=== PATIENT | female | born 1995 | race Caucasian/White ===

== ENCOUNTER 2024-11-25 20:32 | Emergency (ER) | payer BC, SELFPAY ==
[2024-11-25 20:33] VITALS: BP 131/98
[2024-11-25 20:55] LABS: Hematocrit 39.3 % (37.0-47.0); Hemoglobin 13.2 g/dL (12.0-16.0); Mean Corp Hgb Conc. 33.6 g/dL (33.0-37.0); Mean Corpuscular Volume 85.6 fL (81.0-99.0); Nucleated Red Blood Cells % 0 %; Platelet Count 237 10^3/uL (130-400); Red Cell Dist. Width 13.0 % (11.5-14.5)
[2024-11-25] MEDS: ZOFRAN 4 MG IV ×2 (21:15→23:45)
[2024-11-25 21:18] LABS: HCG, Serum Qualitative Screen Negative
[2024-11-25 21:34] LABS: ALT (SGPT) 43 U/L (0-35); AST (SGOT) 35 U/L (14-36); Albumin 4.5 g/dl (3.5-5.0); Alkaline Phosphatase 59 U/L (38-126); Blood Urea Nitrogen 10 mg/dl (7-17); Calcium 9.4 mg/dl (8.4-10.2); Carbon Dioxide 23 mmol/L (22-30); Chloride 104 mmol/L (98-107); Glucose 119 mg/dl (70-99); Potassium 4.0 mmol/L (3.5-5.1); Sodium 138 mmol/L (135-145); Total Protein 7.0 g/dl (6.3-8.2); eGFR > 60.00
[2024-11-25 21:56] LABS: Lipase 77 U/L (23-300)
[2024-11-25 22:21] VITALS: BP 121/105
[2024-11-25 22:42] VITALS: BMI 17.7
[2024-11-25 23:00] VITALS: BP 136/80
[2024-11-25] MEDS: NSS 1000 IV (23:12)
[2024-11-25] MEDS: PROTONIX IV 40 MG IV (23:12)
[2024-11-25 23:15] VITALS: BP 122/87
[2024-11-25 23:31] LABS: Magnesium 1.8 mg/dl (1.6-2.3)
[2024-11-26] VITALS: BP 107/81
[2024-11-26] MEDS: TORADOL 15 MG IV (00:57)
[2024-11-26] MEDS: COMPAZINE 10 MG IV (00:57)
[2024-11-26] MEDS: NSS 1000 IV (00:58)
[2024-11-26] MEDS: MORPHINE SULFATE 2 MG IV (00:58)
[2024-11-26 01:10] VITALS: BP 107/95
--- NOTE | 2024-11-26 02:06 | ED.GENMED ---
History of Present Illness
General
Chief Complaint: Abdominal Symptoms
Source: patient
Exam Limitations: none
Time Seen by Provider: 11/25/24 22:34
Nursing documentation reviewed up to this point in time: agreed with
History of Present Illness
History of Present Illness:
Patient presents to ED secondary to persistent nausea, vomiting, and diarrhea over the past 2 days. Denies fever or chills. Denies trauma. Denies sick contact. Denies recent travel. Denies recent change in medications or diet. Denies dizziness
or weakness. Denies noting blood with vomitus nor diarrhea.
Review of Systems
Review of Systems
Allergies reviewed?: Yes
All Other Systems: ROS reviewed and negative except as documented in HPI and ROS
Constitutional: Reports no symptoms; Denies fever
Respiratory: Reports no symptoms
Cardiac: Reports no symptoms
ABD/GI: Reports abdominal pain, nausea, vomiting and diarrhea; Denies bloody stools or black stools
Musculoskeletal: Reports no symptoms
Skin: Reports no symptoms
Neurological: Reports no symptoms; Denies dizzy or weakness
Phy Exam
Physical Exam
Physical Exam:
Physical Exam
General: mild distress, not acutely ill. afebrile
Head: nc/at. eomi
Neck: supple. no meningeal signs.
Heart: s1/s2 regular rate and rhythm
Lungs: no acute respiratory distress. clear bilaterally
Abdomen: normal bowel sounds. not tender. no distention
Neuro: alert and oriented x 3. no focal neurological deficits
Skin: no rash
Psychiatric: well kept. interactive and cooperative
Extremities: no edema. no calf tenderness.
Course
Orders/Labs/Results
Orders:
Orders
11/25/24 20:38
Electrocardiogram (*1) Urgent
Reason for Study: Abdominal Pain
EKG- Treatment ONCE
11/25/24 20:39
Test Result ONCE
11/25/24 20:50
Complete Blood Count/With Diff Urgent
Comprehensive Metabolic Panel Urgent
HCG, Serum Qualitative Screen Urgent
Lipase Urgent
Magnesium Urgent
Comment: ADD ON
11/25/24 21:12
Ondansetron Injectable [Zofran] 4 mg .ROUTE .STK-MED ONE
11/25/24 21:15
Ondansetron Injectable [Zofran] 4 mg IV NOW STA
11/25/24 22:56
0.9% Sodium Chloride 1000 ml [Nss] 1,000 ml IV BOLUS
Pantoprazole [Protonix IV] 40 mg IV NOW STA
11/25/24 23:21
Add On- LAB Urgent
Tests Added?: magnesium
Norovirus by PCR Urgent
ARTUR Source: ST
Specimen Description:
Date Specimen was Collected: 11/25/24
Time Specimen was Collected: 23:18
Comment: ADDED
Stool Culture Urgent
ARTUR Source: Feces/Stool
Specimen Description:
Date Specimen was Collected: 11/25/24
Time Specimen was Collected: 23:18
11/25/24 23:42
Ondansetron Injectable [Zofran] 4 mg .ROUTE .STK-MED ONE
11/25/24 23:45
Ondansetron Injectable [Zofran] 4 mg IV NOW STA
11/26/24 00:22
Add On - Microbiology Urgent
Tests Added?: norovirus
11/26/24 00:46
Ketorolac [Toradol] 15 mg IV NOW STA
Morphine Sulfate 2 mg IV NOW STA
Prochlorperazine [Compazine] 10 mg IV NOW STA
11/26/24 00:47
0.9% Sodium Chloride 1000 ml [Nss] 1,000 ml IV BOLUS
Abnormal Lab Results
11/25/24
20:50
Absolute Lymphs (auto) 0.7 L 10^3/uL
(1.2-3.4)
Neutrophils % 83.0 H %
(42.2-75.2)
Lymphocytes % 9.1 L %
(20.5-51.1)
Glucose 119 H mg/dl
(70-99)
ALT 43 H U/L
(0-35)
11/25/24 20:50
11/25/24 20:50
Vital Signs
Initial and Last Documented VS:
Initial Vital Signs
Temp Pulse Resp BP Pulse Ox
99 F 98 18 131/98 99
11/25/24 20:33 11/25/24 20:33 11/25/24 20:33 11/25/24 20:33 11/25/24 20:33
Last Documented Vital Signs
Temp Pulse Resp BP Pulse Ox
99 F 98 18 107/95 98
11/25/24 20:33 11/25/24 20:33 11/25/24 20:33 11/26/24 01:10 11/26/24 02:10
MDM/Problems Addressed
MDM/Problems Addressed:
Patient reports improvement in symptoms after treatment. Repeat abdominal exam: Soft and nontender. Patient otherwise remains afebrile, hemodynamically stable, and nontoxic-appearing, during observation.
Blood work within normal limits.
History and exam consistent with likely nonspecific viral illness. Stool culture pending. Will treat patient conservatively, with recommendation to return to ED with worsening symptoms.
*Pulse Oximetry
SaO2: 98
Oxygen Mode of Delivery: Room air
Patient hypoxic: no
*Critical Care Note
Total Time (30-74mins, 75-104mins- exclusive of procedures): Not Applicable
ED Attending Note
-
Portions of this chart may have been created with voice recognition software.� Occasional wrong word or��sound alike� substitutions may have occurred due to the inherent limitations of voice recognition software.
Discharge Plan
Departure
Patient Disposition: Home (Routine Discharge)
Date of Disposition: 11/26/24
Time of Disposition: 02:10
Patient with high blood pressure during this ER visit?: Yes
Condition: Fair
Discharge Problem:
Gastroenteritis
Instructions: Viral gastroenteritis in adults
Prescriptions:
New
prochlorperazine maleate [Compazine] 10 mg tablet
10 mg PO Q8H PRN (Reason: nausea and vomiting) Qty: 14 0RF
Referrals:
NONE,* [Family Provider, Internal Medicine]
Activity Restrictions/Additional Instructions:
As discussed, please follow-up with your primary care physician for reevaluation, or consider return to ED with worsening symptoms.
Interventions
Interventions:
*Risk Screen - Suicide Last Done: 11/25/24 20:36
*General Assessment Last Done: 11/25/24 20:36
*Neglect/Abuse Screening Last Done: 11/25/24 22:43
*ED- Fall Risk Assessment Last Done: 11/25/24 22:43
*ED COVID-19 Vaccine History Last Done: 11/25/24 20:36
*ED Influenza Vaccine History Last Done: 11/25/24 20:36
*Nursing Disposition Last Done: 11/26/24 02:28
GD-Eqggud-Gyqkskhrui Assessment Last Done: 11/25/24 22:38
Discharge Date and Time
Discharge Date/Time: 11/26/24 02:30
Print Language: FAROESE
== END 2024-11-26 02:30 | disposition home or self-care (01) ==
LOC: EMR 20:32
PROVIDERS: Emergency Medicine; EMERGENCY PHYSICIAN Emergency Medicine
DX: K52.9 Noninfective gastroenteritis and colitis, unspecified (principal)
CPT/HCPCS: 96374; 96375; 96376; 96361; 99284; 80053; 83690; 83735; 84703; 85025; 87045; 87046; 87427; 87798; 93005